=== PATIENT | female | born 1930 | race Caucasian/White ===

== ENCOUNTER → 2018-05-04 | Outpatient (CLI) | payer MEDICARE ==
[~2018-05-04] MED LIST: ASPI-496 PO; ATEN25TA PO; ATEN50TA41 PO; AZEL205. NAS; CHOL10003 PO; CITA10TA4 PO; CLOP75TA PO; DOCU-131 PO; FLUT9.9S NAS; FURO-92 PO; GABA300C PO; OMEP-110 PO; POTA20TA14 PO; SIMV20TA PO
== END | disposition home or self-care (01) ==
LOC: CFH 08:16
PROVIDERS: ATTEND Internal Medicine Cardiovascular Disease
DX: I08.1 Rheumatic disorders of both mitral and tricuspid valves (principal); I10 Essential (primary) hypertension; E78.5 Hyperlipidemia, unspecified; Z95.2 Presence of prosthetic heart valve
CPT/HCPCS: 93306